=== PATIENT | female | born 1960 | race African-American/Black ===

== ENCOUNTER 2019-05-02 11:18 | Emergency (ER) | payer OTHER ==
[~2019-05-02] VITALS: Ht 154.9 cm; Wt 99.8 kg
[~2019-05-02 11:18] MED LIST: ENALAPRIL-HCTZ1 EAC1; NEURONTIN600 MG; SM COD LIVER O1 EACH; SYNTHROID50 MCG
[2019-05-02] MEDS ORDERED: MOBIC15 MG (11:53)
[2019-05-02] MEDS ORDERED: ZANAFLEX6 MG (11:54)
== END 2019-05-02 14:39 | disposition home or self-care (01) ==
LOC: ER 11:18
DX: M79.7 Fibromyalgia (principal)

== ENCOUNTER 2019-12-26 15:33 | Emergency (ER) | payer OTHER ==
[~2019-12-26] VITALS: Ht 154.9 cm; Wt 90.7 kg
[~2019-12-26 15:33] MED LIST changes: +MOBIC15 MG; +ZANAFLEX6 MG
== END 2019-12-26 16:59 | disposition home or self-care (01) ==
LOC: ER 15:33
DX: S90.01XS Contusion of right ankle, sequela (principal); M25.571 Pain in right ankle and joints of right foot; W18.39XS Other fall on same level, sequela

== ENCOUNTER 2021-01-20 17:20 | Emergency (ER) | payer OTHER ==
[~2021-01-20] VITALS: Ht 165.1 cm; Wt 95.3 kg
[2021-01-20] MEDS ORDERED: NEURONTIN800 MG PO (17:37)
== END 2021-01-20 22:41 | disposition home or self-care (01) ==
LOC: ER 17:20
DX: B34.9 Viral infection, unspecified (principal); M79.7 Fibromyalgia; Z11.52 Encounter for screening for COVID-19